=== PATIENT | female | born 1955 | race African-American/Black ===

== ENCOUNTER 2017-06-30 19:52 | Emergency (ER) | payer OTHER ==
[~2017-06-30] VITALS: Ht 154.9 cm; Wt 68.1 kg
[~2017-06-30 19:52] MED LIST: MOTRIN800 MG PO; NOHOMEMEDS; TAMIFLU75 MG PO
[2017-06-30 20:12] VITALS: BP 168/74
== END 2017-06-30 21:46 | disposition left against medical advice (07) ==
LOC: EME 19:52
DX: R23.0 Cyanosis (principal); Z53.21 Procedure and treatment not carried out due to patient leaving prior to being seen by health care provider

== ENCOUNTER 2017-07-01 14:55 | Emergency (ER) | payer OTHER ==
[~2017-07-01] VITALS: Ht 154.9 cm; Wt 68.4 kg
[2017-07-01 19:18] LABS: INTER. NORMALIZED RATIO 0.9
[2017-07-01 19:21] LABS: PTT 30.7 SEC (25-37)
[2017-07-01 19:22] LABS: HEMATOCRIT 38.3 % (36.0-46.0); MCH 26.7 PG (29.0-34.0); MCHC 31.3 G/DL (30.0-36.0); MCV 85.3 FL (83-99); PLATELET COUNT 238 K/uL (156-360); RBC DIS.WIDTH-CV 13.6 % (11.8-14.6); RBC DIS.WIDTH-SD 42.6 % (39-53); RED BLOOD COUNT 4.49 M/uL (3.80-5.20); WHITE BLOOD COUNT 7.7 K/uL (4.1-10.2)
[2017-07-01 19:23] VITALS: BP 168/71
[2017-07-01 19:25] LABS: CHLORIDE 106 mEq/L (99-109); POTASSIUM 4.3 mEq/L (3.7-5.4); SODIUM 142 mEq/L (136-147)
[2017-07-01 19:26] LABS: GLUCOSE 90 mg/dL (70-99)
[2017-07-01 19:30] LABS: CREATININE 0.6 mg/dL (0.6-1.3); GFR ESTIMATE (CALCULATED) > 59 mL/min/
[2017-07-01 19:31] LABS: UREA NITROGEN (BUN) 14 mg/dL (9-23)
[2017-07-01 20:12] LABS: ERTH.SED.RATE 13 MM/HR (0-30)
== END 2017-07-01 19:24 | disposition home or self-care (01) ==
LOC: EME 14:55
PROVIDERS: Emergency Medicine
DX: I73.00 Raynaud's syndrome without gangrene (principal); Z87.891 Personal history of nicotine dependence
CPT/HCPCS: 80048; 83605; 85027; 85610; 85651; 85730; 99281; 99284

== ENCOUNTER 2017-08-25 18:21 | Emergency (ER) | payer OTHER ==
[~2017-08-25] VITALS: Ht 154.9 cm; Wt 68.0 kg
[2017-08-25] MEDS ORDERED: MOTRIN600 MG PO (21:22)
[2017-08-25 21:28] VITALS: BP 156/72
== END 2017-08-25 21:28 | disposition home or self-care (01) ==
LOC: EME 18:21
DX: M25.532 Pain in left wrist (principal); S46.911A Strain of unspecified muscle, fascia and tendon at shoulder and upper arm level, right arm, initial encounter; S06.0X0A Concussion without loss of consciousness, initial encounter; W10.8XXA Fall (on) (from) other stairs and steps, initial encounter; E78.5 Hyperlipidemia, unspecified; J30.9 Allergic rhinitis, unspecified; Z87.891 Personal history of nicotine dependence; Z90.710 Acquired absence of both cervix and uterus
CPT/HCPCS: 70450; 72125; 73030; 73130; 99281; 99285